=== PATIENT | female | born 1980 | race Caucasian/White ===

== ENCOUNTER 2018-03-14 18:44 | Emergency (ER) | payer SELFPAY ==
--- NOTE | 2018-03-14 19:03 | ER Report ---
History and Physical Time Seen By MD: 19:03 Hx. of Stated Complaint: broken tooth on left lower HPI/ROS CHIEF COMPLAINT: Broken tooth, toothache HISTORY OF PRESENT ILLNESS: 37-year-old female presents a ambulatory the ER complaining of left lower tooth pain. She has 2 posterior molars with fillings in them. She fractured off the back half of the molar at position #19. She notes throbbing 6/10 pain. He notes a mild nausea but no vomiting. She's had no fever or chills. She notes some difficulty swallowing or breathing REVIEW OF SYSTEMS: Respiratory: No cough, no dyspnea. Cardiovascular: No chest pain, no palpitations. Gastrointestinal: No vomiting, no abdominal pain. Musculoskeletal: No back pain. Allergies: Coded Allergies: No Known Drug Allergies (Unverified , 03/14/18) Home Meds Active Scripts Hydrocodone Bit/Acetaminophen (NORCO 5-325 TABLET) 1 Each Tablet, 1 EACH PO Q4H Y for PAIN, #12 TAB Prov:LEXICARLOS ENRIQUE DO 03/14/18 Amoxicillin 500 Mg Tab (AMOXICILLIN 500 MG TAB) 500 Mg Tablet, 1 TAB PO TID for infection, #30 TAB Prov:CARLOS ENRIQUE ELLIOTT DO 03/14/18 Reviewed Nurses Notes: Yes Old Medical Records Reviewed: Yes Physical Exam General Appearance: The patient is alert, has no immediate need for airway protection and no current signs of toxicity. Moderate distress, slightly pale appearing, skin warm and dry, vital signs stable, afebrile HEENT: Pupils equal and round no injection. TMs normal, TMJs nontender, examination of the oropharynx reveals a fractured tooth at position #19. There is a filling in the tooth and the posterior half of the tooth is fractured off. Respiratory: Chest is non tender, lungs are clear to auscultation. Cardiac: regular rate and rhythm Musculoskeletal: Neck: Neck is supple and non tender. No lymphadenopathy or induration of neck tissues Extremities have full range of motion and are non tender. Skin: No rashes or lesions. [ ] DIFFERENTIAL DIAGNOSIS: After history and physical exam differential diagnosis was considered for toothache, tooth abscess, fractured tooth, ostial myelitis of the jaw Medical Decision Making ED Course/Re-evaluation ED Course Patient was admitted to an examination room. H&P was done. The differential diagnoses was considered. On conical examination. Patient has a fractured tooth with significant tooth pain. She'll be covered with amoxicillin. She's given a limited supply of [place] for pain relief. She is advised to follow-up with the dentist as soon as possible. She is provided a list of local dentists. Decision to Disposition Date: Mar 14, 2018 Decision to Disposition Time: 19:07 Depart Departure Impression: Primary Impression: Fractured tooth Additional Impression: Toothache Condition: Improved Disposition: HOME OR SELF-CARE New Scripts Hydrocodone Bit/Acetaminophen (NORCO 5-325 TABLET) 1 Each Tablet 1 EACH PO Q4H Y for PAIN, #12 TAB Prov: CARLOS ENRIQUE ELLIOTT DO 03/14/18 Amoxicillin 500 Mg Tab (AMOXICILLIN 500 MG TAB) 500 Mg Tablet 1 TAB PO TID for infection, #30 TAB Prov: CARLOS ENRIQUE ELLIOTT DO 03/14/18 Patient Instructions: Dental Abscess (ED) Additional Instructions: Take ibuprofen 200 mg 3 tablets 3 times a day with food Apply warm compresses to your left jaw Follow-up with dentist as planned on Wednesday Finished taking all of your antibiotics Problem Qualifiers Primary Impression: Fractured tooth Encounter type: initial encounter Fracture type: open Qualified Codes: S02.5XXB - Fracture of tooth (traumatic), initial encounter for open fracture CARLOS ENRIQUE ELLIOTT DO Mar 14, 2018 19:03
[2018-03-14] MEDS ORDERED: HYDR-4309 PO (19:08)
[2018-03-14] MEDS ORDERED: AMOX500T10 PO (19:08)
== END 2018-03-14 19:20 | disposition home or self-care (01) ==
LOC: ER 19:19
DX: S02.5XXB Fracture of tooth (traumatic), initial encounter for open fracture (principal)
CPT/HCPCS: 99281